=== PATIENT | female | born 1995 | race Two or more races ===

== ENCOUNTER 2020-05-01 13:40 | Emergency (ER) | payer MEDICAID ==
[~2020-05-01] VITALS: Ht 162.6 cm; Wt 79.4 kg
[2020-05-01 13:58] VITALS: Ht 162.6 cm; Wt 79.4 kg
[2020-05-01 16:34] VITALS: BP 108/71
== END 2020-05-01 16:34 | disposition home or self-care (01) ==
LOC: ED 13:40
DX: S61.511A Laceration without foreign body of right wrist, initial encounter (principal); W26.8XXA Contact with other sharp object(s), not elsewhere classified, initial encounter; Y93.89 Activity, other specified; Y92.89 Other specified places as the place of occurrence of the external cause; Y99.8 Other external cause status
CPT/HCPCS: J2001

== ENCOUNTER 2020-05-03 14:18 | Emergency (ER) | payer MEDICAID ==
[~2020-05-03] VITALS: Ht 162.6 cm; Wt 78.5 kg
[2020-05-03 14:47] VITALS: BP 114/63; Ht 162.6 cm; Wt 78.5 kg
== END 2020-05-03 15:24 | disposition home or self-care (01) ==
LOC: ED 14:18
DX: S61.511D Laceration without foreign body of right wrist, subsequent encounter (principal); X58.XXXD Exposure to other specified factors, subsequent encounter

== ENCOUNTER 2020-05-15 12:05 | Emergency (ER) | payer MEDICAID ==
[~2020-05-15] VITALS: Ht 162.6 cm; Wt 78.5 kg
[2020-05-15 12:29] VITALS: BP 117/84; Ht 162.6 cm; Wt 78.5 kg
== END 2020-05-15 13:02 | disposition home or self-care (01) ==
LOC: ED 12:05
DX: S61.511D Laceration without foreign body of right wrist, subsequent encounter (principal); X58.XXXD Exposure to other specified factors, subsequent encounter